=== PATIENT | male | born 1940 | race Caucasian/White ===

== ENCOUNTER → 2019-07-25 07:08 | Outpatient (CLI) | payer MEDICARE, SELFPAY ==
--- NOTE | 2019-07-25 | CA_ITS ---
APPROVED REPORT Exam: Pharmacologic Technologist: Cookie Pate Ht: 5 ft 7 in Wt: 185 lbs BSA: 1.96 m2 HR: 79 bpm BP: 184/90 mmHg Indications: Surgery clearance Medical History Medical History: HTN, Pacemaker Medications: Lorazepam,,,,, Asa,,,,, Losartan,,,,, HCTZ,,,,, Carvedilol,,,,, DOxazosin,,,,, LevothROXINE,,,,, Omepazole,,,,, Stress Test Details Test: LEXISCAN HR Resting HR: 76 bpm Max Heart Rate (APMHR): 142 bpm Max HR Achieved: 91 bpm Target HR (85% APMHR): 120 bpm % of APMHR: 64 Recovery HR: 84 bpm BP Resting BP: 184/90 mmHg Max BP: 184/90 mmHg Recovery BP: 128.0/65.0 mmHg ECG Resting ECG: NSR Clinical Exercise duration: 04:00 min Highest Stage Achieved: Stress ECG Conclusion Symptoms: Lightheaded, head pressure, mild malaise, No CP Arrhythmias/Ectopy: None ST-T Changes: No significant changes. Unremarkable lexiscan stress Myoview images reported seperately Test Summary REST 12:54 . . 76 . 184/ 90 . . Stage 1 01:00 . . 87 . . . . Stage 2 01:00 . . 78 . 121/ 52 . . Stage 3 01:00 . . 87 . 104/ 56 . . Stage 4 01:00 . . 86 . 120/ 63 . Stop exercise at 04:00 RECOVERY 01:00 . . 88 . 135/ 70 . . RECOVERY 02:00 . . 89 . 133/ 74 . . RECOVERY 03:00 . . 87 . 133/ 68 . . RECOVERY 04:00 . . 89 . 128/ 67 . . RECOVERY 05:00 . . 88 . 129/ 67 . . RECOVERY 05:51 . . 89 . 128/ 65 . . Electronically signed by : Hugh Freitas, 07/26/2019 09:19:12
--- NOTE | 2019-07-25 07:10 | NM_ITS ---
APPROVED REPORT Exam: Nuclear Stress Test Indication: short of breath [facility] Stress Tech: Cookie Pate [place] Tech:Kalyani Wiley CESAR RT(R)(N) Ht: 5 ft 5 in Wt: 185 lbs BSA: 1.91 m2 HR: 79 bpm BP: 184/90 mmHg BMI: 30.7 History: short of breath Procedure: Patient received a 0.4 mg of intravenous Lexiscan, resting heart rate 79 bpm, resting blood pressure 184/90 mmHg, with Lexiscan maximum heart rate achived was 88 bpm which is Less than 85 % of the maximum predicted heart rate and blood pressure was 120/63 mmHg. With Lexiscan, patient denied any complaint of chest pain. Electrocardiogram Resting electro cardiogram showed sinus rhythm, with Lexiscan there is less than 1.[address] segment depression noted from the baseline EKG. The EKG portion of the Lexiscan Myoview is nondiagnostic. Cardiac Stress and Resting SPECT Images: Cardiac Stress and Resting SPECT images were obtained using technetium 99m Myoview 31 mCi stress and 10 mCi at rest. Gated SPECT with analysis of segmental wall motion and Duration of ejection fraction also done. Cardiac stress and resting SPECT images show mild fixed defect involving the inferior wall with normal contractility gated SPECT is likely secondary to soft tissue attenuation, no reversible ischemia seen. Computer derived ejection fraction is over 65% with no regional wall motion abnormality, right ventricle is normal size and contractility. Conclusion: 1. The EKG portion of the Lexiscan Myoview is nondiagnostic. 2. No scintigraphic evidence of reversible ischemia seen, computer derived ejection fraction is over 65% with no regional wall motion abnormality, right ventricle is normal size and contractility. 3. Normal Lexiscan Myoview study. Electronically signed by : Hugh Freitas, 07/25/2019 15:42:46
--- NOTE | 2019-07-25 07:10 | CA_ITS ---
APPROVED REPORT EXAM: Comprehensive 2D, Doppler, and color-flow Echocardiogram Support Services Coordinator: Katalina Jenkins RVT Ht: 5 ft 7 in Wt: 184lbs BSA: 1.95 BP: 159/100 mmHg Indications: Shortness of Breath, Hyperlipidemia, Hypertension/HDD,Pacer,Pre-op clearance 2D Dimensions IVSd 1.00 cm M: 0.6-1.2 LVEF (Visual) 59.00 % PWd 0.90 cm M: 0.6 - 1.2 LVDd 5.10 cm M: 4.2 - 5.9 LVDs 3.50 cm M: 2.5 - 4.0 LVOT 2.20 cm (M/F) 1.5-2.5 M-Mode Dimensions LA Diam 3.40 cm (1.9-4.0) Ao Diam 2.80 cm (2.0-3.7) AV Cusp 2.30 cm (1.5-2.6) LV Diastology E/A Ratio 0.4 MED E' 4.68 (< 7 cm/sec) E'/MED E' Ratio 9.40 (>14) LAT E' 5.07 (<10 cm/sec) E/LAT E' Ratio 8.70 (>14) Aortic Valve AoV Peak Francisco. 80.90 (50-130 cm/s) AI PHT 339.00 ms AO Peak GR. 3.00 mmHg Mitral Valve MV E Max Francisco. 43.90 (40-130 cm/s) MV A Velocity 100.00 (40-130 cm/s) E/A Ratio 0.40 Pulmonary Valve PA Accel Time 134.00 (>120 msec) Tricuspid Valve TR P. Velocity 257.00 cm/s Left Ventricle Left atrium is mildly enlarged, left ventricle is normal size, there is mild concentric left ventricular hypertrophy, visually estimated ejection fraction 55% with no regional wall motion abnormality, diastolic parameters are consistent with grade 1 diastolic dysfunction without tissue Doppler evidence of raise left atrial pressure. There is abnormal septal motion. Right Ventricle Right atrium and right ventricle are mildly enlarged with normal contractility, there is a pacemaker lead seen in the right ventricle. Aortic Valve Aortic valve is thickened and calcified, there is no aortic stenosis, there is mild aortic insufficiency. Mitral Valve Mitral valve is grossly normal, there is mild mitral regurgitation. Tricuspid Valve Tricuspid valve is grossly normal, there is mild tricuspid regurgitation, tricuspid regurgitation jet velocity is inadequate for calculation of the right ventricular systolic pressure. Pulmonic Valve Pulmonic valve is poorly visualized. Great Vessels Aortic root is normal size. Pericardium No significant pericardial effusion noted. Conclusion 1. Biatrial enlargement, normal left ventricular size, mild concentric left ventricular hypertrophy, visually estimated ejection fraction 55% with no regional wall motion abnormality, there is abnormal septal motion, grade 1 diastolic dysfunction seen without tissue Doppler evidence of raise left atrial pressure. 2. Mildly enlarged right ventricle with normal contractility. 3. Thickened and calcified aortic valve there is no aortic stenosis, there is mild aortic insufficiency. 4. Mild mitral and tricuspid regurgitation 5. No significant pericardial effusion noted. Electronically signed by : Hugh Freitas, 07/26/2019 16:59:56
--- NOTE | 2019-07-25 08:53 | HMH.ITSHM ---
Current Home Medications as stated by this patient Reese Gardner or hospital insurance representative. [] asa lorazepam losartan carvedilol
== END ==
PROVIDERS: PCP Family Medicine; Visit Provider Internal Medicine Cardiovascular Disease
DX: Z01.818 Encounter for other preprocedural examination; R06.00 Dyspnea, unspecified; E78.49 Other hyperlipidemia; I11.9 Hypertensive heart disease without heart failure; I49.5 Sick sinus syndrome; R60.9 Edema, unspecified; Z95.0 Presence of cardiac pacemaker
CPT/HCPCS: 78452; 93017; 93306; A9502; J2785